=== PATIENT | female | born 1970 | race Two or more races ===

== ENCOUNTER 2025-04-22 21:54 | Inpatient (IN) | payer OTHER ==
[~2025-04-22] VITALS: Ht 162.6 cm; Wt 79.0 kg
--- NOTE | 2025-04-22 23:19 | ED.PDOC ---
HPI Comments HPI: Past Medical History: Hypertension, dyslipidemia, hyperthyroid Surgical History: , left ankle surgery Family History: Denies Personal and Social History: Denies Tre Adams: palpitations, weakness, TSH. propranolol HPI: Poor Historian. 54-year-old female presents to the ED for evaluation of some overall generalized weakness and nonspecific tremors. Patient states she has been feeling odd for the last three weeks and went to her PCP who diagnosed with a thyroid disease after TSH and T4 was ordered. ((TSH: <0.05, T4: >24.9, T3: 579) The PCP did not start the patient on any thyroid medication but it state gave her propranolol. Patient took the 1st dose today 10 mg p.o. once. She said that her symptoms got worse after she took that pill. She checked her blood pressure at home and heart rate. Heart rate was asthma FX as 103 blood pressure was systolically in the 140s. Denies any actual chest pain or abdominal pain or shortness of breath. Patient is scheduled for outpatient ultrasound of her thyroid. Past Medical History: Past Surgical History: REVIEW OF SYSTEMS: CONSTITUTIONAL: Denies acute: fever, diaphoresis, chills, HEAD: Denies acute: headache, photophobia Eyes: Denies acute: Double vision, vision loss, eye pain, eye discharge. EARS: Denies acute: tinnitus, hearing loss, ear discharge, ear pain, THROAT: Denies acute: sore throat, swelling, difficulty swallowing , pain with swallowing, change in voice. NECK: Denies acute: neck pain, neck swelling, stiff neck. HEART: Denies acute : chest pain, , LUNGS: Denies acute: SOB, wheezing, cough, hemoptysis ABDOMEN: Denies acute: abdominal pain, Nausea, Vomiting, diarrhea, melena , hematemesis, hematochezia SKIN: Denies acute: rash, redness, lesions, itchiness. EXTREMITIES: Denies acute: calf pain, numbness, tingling, weakness, denies pain in extremity. Denies acute: Low back pain. Neuro: Denies acute: focal neurological deficit, motor or sensory focal neurological deficit, , seizure like activity, confusion, , change in mental status, loss of bowel or bladder function, cauda equina like symptoms. : Denies acute: dysuria, hematuria, flank pain, increase in urinary frequency. PSYCH: Denies acute: hallucination, suicidal ideation, homicidal ideation. FEMALE: Denies acute: abnormal vaginal bleeding, foul odor, unusual discharge. PHYSICAL EXAM: General: ----while----acute distress, awake and alert. Head: normocephalic, atraumatic. No raccoon's eyes, no gatica sign. Neck: supple, trachea is midline, no swelling. Throat: Normal phonation. Eyes:, no erythema, no purulent discharge, no proptosis, no icterus. Heart: regular rate, regular rhythm, no significant murmur appreciated. Lungs: no apparent respiratory distress, Able to speak in full sentences. No wheezing, no rhonchi, no crackles. No stridors Clear to auscultation bilaterally. Abdomen: non tender to palpation, non distended, soft, no guarding, no rebound, + bowel sounds. Neuro: Awake, Alert, oriented to name, self, situation, follows commands GCS=15. Speech is normal. Skin: no petechia, no purpura, no cyanosis, non-pale, not jaundice. Lower extremities: --no - Pitting edema no deformity, no focal swelling, no calf TTP. Makes eye contact. moves all four extremities. Face: no apparent facial droop. Ambulating in the ED independently. ED COURSE: DISCLAIMER: This medical document was created using an electronic medical record system with voice recognition software and computerized dictation system. Although this document has been carefully reviewed, there might still be some phonetic and typographical errors. Occasional wrong-word or "sound-alike" substitutions may have occurred due to the inherent limitations of voice recognition software. These areas are purely typographical due to imperfections of the software programs and do not reflect any compromise in the patient's medical care. Please read the chart carefully and recognize, using context, where these substitutions have occurred. Chief Complaint: Chest Pain Time Seen by MD: 23:19 Reviewed Notes: Nurses Notes, Allergies Allergies: Coded Allergies: NO KNOWN ALLERGIES (Unverified , 04/23/25) Information Source: Patient Mode of Arrival: Ambulatory Past Medical History PAST MEDICAL HISTORY: High Lipids, HTN, Thyroid Was a procedure done? Was a procedure done?: No CP Differential Dx Differential Diagnosis: A-fib, A-Flutter, Angina, Anxiety / Panic Attack, Atrial Dysrhythmia, Digoxin Toxicity, Electrolyte Disorder, Heart Failure, Hyperthyroidism, Hyperventilation, Hypoxia, MAT, MD, PAC's, Pacemaker Malfunction, PSVT, Pulmonary Embolus, PVC's, Renal Failure, Sinus Tachycardia, Torsades De Pointes, Ventricular Dysrhythmia, V-Fib, V-Tach, WPW X-Ray, Labs, Meds, VS Vital Signs Date Time Temp Pulse Resp B/P (MAP) Pulse Ox O2 Delivery O2 Flow Rate FiO2 04/23/25 01:04 95 04/22/25 23:26 93 04/22/25 22:05 97.4 96 19 142/82 97 97.4 04/22/25 22:00 103 Lab Test 04/23/25 00:13 04/22/25 23:10 Range/Units Magnesium Level 2.1 2.1 1.6-2.6 mg/dL Troponin I High Sensitivity 3 L 3 L </=34 ng/L White Blood Count 5.8 4.4-10.8 10^3/uL Red Blood Count 4.64 4.0-5.20 10^6/uL Hemoglobin 13.5 12.2-16.2 g/dL Hematocrit 39.3 36.0-46.0 % Mean Corpuscular Volume 84.8 80.0-100.0 fL Mean Corpuscular Hemoglobin 29.0 28.0-32.0 pg Mean Corpuscular Hemoglobin Concent 34.2 32.0-36.0 g/dL Red Cell Distribution Width 11.5 L 11.8-14.3 % Platelet Count 243 140-450 10^3/uL Mean Platelet Volume 8.0 6.9-10.8 fL Neutrophils (%) (Auto) 49.5 37.0-80.0 % Lymphocytes (%) (Auto) 35.0 10.0-50.0 % Monocytes (%) (Auto) 11.1 0.0-12.0 % Eosinophils (%) (Auto) 3.8 0.0-7.0 % Basophils (%) (Auto) 0.6 0.0-2.0 % Neutrophils # (Auto) 2.9 1.6-8.6 10 ^3/uL Lymphocytes # (Auto) 2.0 0.4-5.4 10 ^3/uL Monocytes # (Auto) 0.6 0-1.3 10 ^3/uL Eosinophils # (Auto) 0.2 0-0.8 10 ^3/uL Basophils # (Auto) 0 0-0.2 10 ^3/uL Nucleated Red Blood Cells 0.1 % D-Dimer, Quantitative 0.50 H 0.0-0.49 mg/L FEU Sodium Level 141 136-145 mmol/L Potassium Level 4.3 3.5-5.1 mmol/L Chloride Level 108 H 98-107 mmol/L Carbon Dioxide Level 24 20-31 mmol/L Anion Gap 9 5-15 Blood Urea Nitrogen 10 9-23 mg/dL Creatinine 0.42 L 0.550-1.02 mg/dL Glomerular Filtration Rate Calc 116 >90 mL/min BUN/Creatinine Ratio 23.8 H 10.0-20.0 Serum Glucose 109 H 74-106 mg/dL Lactic Acid Level 0.5 0.4-2.0 mmol/L Calcium Level 9.7 8.7-10.4 mg/dL Total Bilirubin 0.6 0.2-1.0 mg/dL Aspartate Amino Transferase (AST) 43 H 13-40 U/L Alanine Aminotransferase (ALT) 77 H 7-40 U/L Alkaline Phosphatase 71 46-116 U/L Total Protein 6.9 5.7-8.2 g/dL Albumin 3.9 3.2-4.8 g/dL Thyroid Stimulating Hormone (TSH) < 0.01 L 0.55-4.78 uIU/mL Free Thyroxine (T4) Calculated 6.82 H 0.89-1.76 ng/dL [place] [id number] Ph: [phone] DIAGNOSTIC IMAGING Diagnostic Imaging Report : [id number] Signed PATIENT: TRE ADAMS ACCT: [id number] UNIT: [id number] : 1970 LOC: ER ROOM / BED: / AGE / SEX: 54 / F ADM STATUS: REG ER SERVICE [id number] ORDERING PHYSICIAN: CATARINO HALL DO PROCEDURE(s): CXRP - CHEST PORTABLE REASON: tachy ORDER NUMBER(s): [id number], ACCESSION NUMBER(s): [id number] CHEST RADIOGRAPH Indication: tachy Technique: Single frontal view of the chest was obtained COMPARISON: None FINDINGS: Lungs and pleural spaces are clear. Cardiac silhouette and delvin are within normal limits. Bones and soft tissues demonstrate no significant abnormality. IMPRESSION: No acute disease. ATED BY: NEGIN MAX MD DICTATED DATE/TIME: 04/23/2524 SIGNED BY: NEGIN MAX MD SIGNED DATE/TIME: 04/23/2524 CC: Time of 1ST Reevaluation: 23:16 Reevaluation 1ST: Unchanged Patient Education/Counseling: Diagnosis, Treatment Family Education/Counseling: No Family Present Comments MDM: patient presented with the above HPI.---generalized weakness/palpitation---workup was initiated. patient was found with the above mentioned diagnosis. the following medications were ordered: please refer to order lists of meds and tests obtained by myself Dr. Hall. Patient ED course and VS have been stabilized. Patient has been reassessed in the ED and remained in a stable condition. Pertinent incidental findings were discussed with the patient and/or family. Patient/family voices understanding and is agreeable with plan. Patient has been observed in the ED adequate length of time to insure improvement/stability. Escalation of care considered: Consideration of escalation to observation or admission Patient was ADMITTED to the medicine team for further evaluation and treatment of their presentation. All the reports of any imaging studies that were ordered by myself were reviewed by myself. SEPSIS Sepsis Screen Date sepsis recognized/suspect: Apr 22, 2025 Time Sepsis recognized/suspect: 2208 Recent Procedure: No On Antibiotic Therapy: No Respiratory Rate >20: No Heart Rate >90: Yes Temp<36 C (96.8 F) or >38.3 C: No SBP <90 or MAP <65 mmHG: No New Acute Mental Status Change: No Is the patient on CPAP, BIPAP,: No Physician Orders Mechanical Expert (04/22/25 ) Chest Portable (04/22/25 22:57) Vital Signs Date Time Temp Pulse Resp B/P (MAP) Pulse Ox O2 Delivery O2 Flow Rate FiO2 04/23/25 01:04 95 04/22/25 23:26 93 04/22/25 22:05 97.4 96 19 142/82 97 97.4 04/22/25 22:00 103 Laboratory Tests Test 04/22/25 23:10 Lactic Acid Level 0.5 mmol/L (0.4-2.0) White Blood Count 5.8 10^3/uL (4.4-10.8) Departure 1 Departure Time of Disposition: 23:45 Impression: Primary Impression: Thyroid disease Disposition: ADMITTED INPATIENT Admit to: Tele Condition: Guarded Discharged With: Self Critical Care Note Critical Care Time?: No Heart Score Heart Score: Heart Score Response (Comments) Value History Slightly Suspicious 0 EKG Repolarization Disturb 1 Age 45-64 1 Risk Factors 1 or 2 risk factors 1 Troponin Normal limit 0 Total 3 I personally scribed for CATARINO HALL DO ([email or web address]) on 04/22/25 at 23:19. Electronically submitted by Cuong Kim ([email or web address]). I personally scribed for CATARINO HALL DO ([email or web address]) on 04/23/25 at 01:35. Electronically submitted by Cuong Kim ([email or web address]). I personally scribed for CATARINO HALL DO ([email or web address]) on 04/23/25 at 03:50. Electronically submitted by Cuong Kim ([email or web address]). CATARINO HALL DO Apr 22, 2025 23:19
[2025-04-22 23:28] LABS: Hematocrit 39.3 % (36.0-46.0); Hemoglobin 13.5 g/dL (12.2-16.2); Mean Corpuscular Hemoglobin 29.0 pg (28.0-32.0); Mean Corpuscular Volume 84.8 fL (80.0-100.0); Nucleated Red Blood Cells % 0.1 %
--- NOTE | 2025-04-22 23:28 | ECG ---
[facility] Test Date: 2025-04-22 Test Time: 23:26:56 Pat Name: TRE ADAMS Department: [facility] ED Patient ID: [facility]-[id number] Room: 0288T Gender: F Manager Mass: DENIS : 1970 Requested By: CATARINO HALL Order Number: [id number] Reading MD: Mario Cole Measurements Intervals [place] Rate: 93 P: 76 [place]: 153 QRS: 82 QRSD: 82 T: 79 QT: 358 QTc: 446 Interpretive Statements Sinus rhythm ST elev, probable normal early repol pattern Electronically Signed On 04-25-2025 10:56:58 PST by Mario Cole Please click the below link to view image of tracing.
[2025-04-22 23:40] LABS: Albumin 3.9 g/dL (3.2-4.8); Alkaline Phosphatase 71 U/L (46-116); Anion Gap 9 (5-15); BUN/Creatinine Ratio 23.8 (10.0-20.0); Blood Urea Nitrogen 10 mg/dL (9-23); Calcium 9.7 mg/dL (8.7-10.4); Carbon Dioxide 24 mmol/L (20-31); Magnesium 2.1 mg/dL (1.6-2.6); Potassium 4.3 mmol/L (3.5-5.1); Sodium 141 mmol/L (136-145); Total Protein 6.9 g/dL (5.7-8.2)
[2025-04-22 23:41] LABS: Bilirubin, Total 0.6 mg/dL (0.2-1.0)
[2025-04-22 23:42] LABS: Alanine Aminotransferase 77 U/L (7-40); Chloride 108 mmol/L (98-107); Glucose 109 mg/dL (74-106)
[2025-04-23] VITALS (7 sets, daily range): BP systolic 115–131; BP diastolic 56–67; PULSE 83–108; RESP 17–19; TEMP 97.6–98.2; O2SAT 97–98
--- NOTE | 2025-04-23 00:28 | DVH ---
CHEST RADIOGRAPH Indication: tachy Technique: Single frontal view of the chest was obtained COMPARISON: None FINDINGS: Lungs and pleural spaces are clear. Cardiac silhouette and delvin are within normal limits. Bones and soft tissues demonstrate no significant abnormality. IMPRESSION: No acute disease.
[2025-04-23] MEDS ORDERED: ACETAMINOPHEN 325 MG TAB PO PRN (02:15)
[2025-04-23] MEDS ORDERED: ONDANSETRON HCL 4 MG/2 ML VIAL IV PRN (02:15)
[2025-04-23] MEDS ORDERED: HYDROcodone-ACET 5/325MG TAB PO PRN (02:15)
--- NOTE | 2025-04-23 02:50 | DVHHPRES ---
History of Present Illness Resident Creating Document: OR[place] BLOCK RESIDENT History of Present Illness 54-year-old woman with a past medical history of hypertension and hyperlipidemia (not on any medication), has come to the emergency room with chief complaints of taking propranolol 10 mg and feeling unwell. Patient reports that in the past 3 weeks, she has been having tremors of all extremities, palpitations, tiredness, weakness, constipation, hypersomnolence, hoarseness of voice, weight loss of 10 lbs for which she visited her PCP 2 days ago, and was told she has hyperactive thyroid disease. She was prescribed propranolol 10 mg which she took today afternoon (first time, first dose) and in 3 hours time had worsening of symptoms- palpitations, dizziness, weakness, nausea and slight shortness of breath, for which he decided to come to the ER. Blood levels of TSH 2 days ago at PCP was TSH <0.005, T4- >24.9 and T3-579. Patient also complains of having phlegm in her throat for the past 3 weeks and was told by PCP she has allergies and was given loratadine and Flonase. She denies any vomiting, fever, chills, cough, chest pain. Vitals on admission- temp 97.4, HR 103, RR 19, BP 142/82 mmHg, SpO2 97 at room air. We are admitting the patient for further workup and management. PMH: Stated above PSH: 2 C sections, hysterectomy, left ankle surgery Family history: Reviewed, noncontributory to the management of this case Social history: Patient denies any alcohol abuse, cigarette smoking but smokes marijuana occasionally Allergies: None Code status: Full code Review of Systems Constitutional: Yes: Weakness, Malaise, Other (Weight loss); No: Fever, Chills, Sweats Eyes: No: Pain, Vision change, Conjunctivae inflammation, Eyelid inflammation, Other, Redness ENT: Other (Hoarseness of voice); No: Ear pain, Ear discharge, Nose pain, Nose discharge, Nose congestion, Mouth pain, Mouth swelling, Throat pain, Throat swelling Respiratory: Shortness of breath; No: Cough, Dry, SOB with excertion, Wheezing, Hemoptysis, Pleuritic Pain, Sputum, Wheezing, Other Cardiovascular: Palpitations, Lt Headedness; No: Chest Pain, Orthopnea, Paroxysmal Noc. Dyspnea, Edema, Other Gastrointestinal: No: Nausea, Vomiting, Abdominal Pain, Diarrhea, Constipation, Melena, Hematochezia, Other Genitourinary: No Dysuria, No Frequency, No Incontinence, No Hematuria, No Retention, No Other Musculoskeletal: No: other, neck pain, shoulder pain, arm pain, back pain, hand pain, leg pain, foot pain Skin: No: Rash, Lesions, Jaundice, Bruising, Other Neurological: Other (Resting Tremors); No: Weakness, Numbness, Incoordination, Change in speech, Confusion, Seizures Allergies: Coded Allergies: NO KNOWN ALLERGIES (Unverified , 04/23/25) Medications Current Medications Medications Dose Ordered Sig/Shauna Route Start Time Stop Time Status Last Admin Dose Admin Acetaminophen/ Hydrocodone Bitart 1 tab Q4HP PRN PO 04/23/25 02:15 Ondansetron HCl 4 mg Q4HP PRN IV 04/23/25 02:15 Acetaminophen 650 mg Q6HP PRN PO 04/23/25 02:15 Enoxaparin Sodium 40 mg DAILY SC 04/23/25 02:15 Atenolol 25 mg DAILY PO 04/24/25 10:00 Loratadine 10 mg DAILY PO 04/23/25 10:00 Methimazole 10 mg BID PO 04/23/25 22:00 Exam Vital Signs Vital Signs Date Time Temp Pulse Resp B/P (MAP) Pulse Ox O2 Delivery O2 Flow Rate FiO2 04/23/25 01:04 95 04/22/25 22:05 97.4 19 142/82 97 97.4 Exam General Appearance: Alert, Oriented X3, Cooperative, Not in acute distress HEENT: Atraumatic, Mucous membranes moist/pink, neck appears enlarged Respiratory: Clear to auscultation, Normal air movement, No added sounds Cardiovascular: Regular rate, Normal S1, Normal S2, No murmurs Abdominal: Active bowel sounds, Soft, no distention, no tenderness Extremities: No edema, Normal pulses, No tenderness/swelling , presence of mild resting tremors in all 4 extremities, more in the right extremity Skin: No Significant rash, except past surgical scars Neuro: Normal speech, sensorimotor deficits none Psych/Mental Status: Mental status NL, Mood NL Labs/Xrays Labs Test 04/23/25 00:13 04/22/25 23:10 Range/Units Troponin I High Sensitivity 3 L </=34 ng/L White Blood Count 5.8 4.4-10.8 10^3/uL Red Blood Count 4.64 4.0-5.20 10^6/uL Hemoglobin 13.5 12.2-16.2 g/dL Hematocrit 39.3 36.0-46.0 % Mean Corpuscular Volume 84.8 80.0-100.0 fL Mean Corpuscular Hemoglobin 29.0 28.0-32.0 pg Mean Corpuscular Hemoglobin Concent 34.2 32.0-36.0 g/dL Red Cell Distribution Width 11.5 L 11.8-14.3 % Platelet Count 243 140-450 10^3/uL Mean Platelet Volume 8.0 6.9-10.8 fL Neutrophils (%) (Auto) 49.5 37.0-80.0 % Lymphocytes (%) (Auto) 35.0 10.0-50.0 % Monocytes (%) (Auto) 11.1 0.0-12.0 % Eosinophils (%) (Auto) 3.8 0.0-7.0 % Basophils (%) (Auto) 0.6 0.0-2.0 % Neutrophils # (Auto) 2.9 1.6-8.6 10 ^3/uL Lymphocytes # (Auto) 2.0 0.4-5.4 10 ^3/uL Monocytes # (Auto) 0.6 0-1.3 10 ^3/uL Eosinophils # (Auto) 0.2 0-0.8 10 ^3/uL Basophils # (Auto) 0 0-0.2 10 ^3/uL Nucleated Red Blood Cells 0.1 % D-Dimer, Quantitative 0.50 H 0.0-0.49 mg/L FEU Sodium Level 141 136-145 mmol/L Potassium Level 4.3 3.5-5.1 mmol/L Chloride Level 108 H 98-107 mmol/L Carbon Dioxide Level 24 20-31 mmol/L Anion Gap 9 5-15 Blood Urea Nitrogen 10 9-23 mg/dL Creatinine 0.42 L 0.550-1.02 mg/dL Glomerular Filtration Rate Calc 116 >90 mL/min BUN/Creatinine Ratio 23.8 H 10.0-20.0 Serum Glucose 109 H 74-106 mg/dL Lactic Acid Level 0.5 0.4-2.0 mmol/L Calcium Level 9.7 8.7-10.4 mg/dL Total Bilirubin 0.6 0.2-1.0 mg/dL Aspartate Amino Transferase (AST) 43 H 13-40 U/L Alanine Aminotransferase (ALT) 77 H 7-40 U/L Alkaline Phosphatase 71 46-116 U/L Total Protein 6.9 5.7-8.2 g/dL Albumin 3.9 3.2-4.8 g/dL Thyroid Stimulating Hormone (TSH) < 0.01 L 0.55-4.78 uIU/mL Free Thyroxine (T4) Calculated 6.82 H 0.89-1.76 ng/dL SEPSIS Sepsis Screen Date sepsis recognized/suspect: Apr 22, 2025 Time Sepsis recognized/suspect: 2208 Recent Procedure: No On Antibiotic Therapy: No Respiratory Rate >20: No Heart Rate >90: Yes Temp<36 C (96.8 F) or >38.3 C: No SBP <90 or MAP <65 mmHG: No New Acute Mental Status Change: No Is the patient on CPAP, BIPAP,: No Physician Orders Park Worker (04/22/25 ) Chest Portable (04/22/25 22:57) Admit (04/23/25 02:04) Code Status (04/23/25 02:04) Hydrocodone-Acet 5/325mg Tab ([place] 5/32 (04/23/25 02:15) Ondansetron Hcl (Zofran) (04/23/25 02:15) Complete Blood Count (04/23/25 04:00) Comprehensive Metabolic Panel (04/23/25 04:00) Cardiac Diet-2gna,Lofat,Lochol (04/23/25 Breakfast) Condition: Unstable (04/23/25 02:04) Acetaminophen Tablet (Tylenol Tablet) (04/23/25 02:15) Enoxaparin Sodium (Lovenox) (04/23/25 02:15) Stat Ekg For Chest Pain (04/23/25 02:04) Notify Of Changes From Base (04/23/25 02:04) Freight Service Inspector For 24 Hours (04/23/25 02:04) T3 Total (04/23/25 02:04) Thyroid (04/23/25 02:04) Urinalysis (04/23/25 02:04) Drug Screen (04/23/25 02:04) Covid19 Antigen Kay (04/23/25 ) Rapid Influenza A&B (04/23/25 02:04) Magnesium (04/23/25 02:04) Bilat Lower Dvt (04/23/25 02:04) Atenolol Tablet (Tenormin Tablet) (04/24/25 10:00) Loratadine Tablet (Claritin Tablet) (04/23/25 10:00) Fluticasone Nasal [place] (Flonase [place]) (04/23/25 10:00) Methimazole Tab (Tapazole) (04/23/25 22:00) Vital Signs Date Time Temp Pulse Resp B/P (MAP) Pulse Ox O2 Delivery O2 Flow Rate FiO2 04/23/25 01:04 95 04/22/25 23:26 93 04/22/25 22:05 97.4 96 19 142/82 97 97.4 04/22/25 22:00 103 Laboratory Tests Test 04/22/25 23:10 Lactic Acid Level 0.5 mmol/L (0.4-2.0) White Blood Count 5.8 10^3/uL (4.4-10.8) Assessment/Plan Assessment/Plan #Thyrotoxicosis, unspecified #Hyperthyroidism -EKG -Tele monitor -TSH <0.01, free T4 6.82, T3 pending -thyroid ultrasound -UA -UDS -D-dimer positive -Bilateral extremity Doppler -Atenolol 25 mg p.o. daily -Methimazole 15 mg p.o. once and 10 mg p.o. b.i.d. daily -hold methimazole if transaminitis X5 upper limit of normal #Transaminitis -AST 43, ALT 77 -Monitor #Seasonal allergy -loratadine -Flonase -COVID/ flu #History of hypertension #History of hyperlipidemia -patient has never been prescribed medication for it -patient counseled regarding healthy diet, exercise DVT prophylaxis: Lovenox 40 mg SC daily Diet: Cardiac diet Goals of care discussed with the patient for more than 27 minutes: Full code status Case discussed with Dr. Gillespie, patient Plan discussed with: Patient, Daughter My Orders Orders - [place] BLOCK RESIDENT Procedure Category Date Status Time Admit ADMIT 04/23/25 Transmitted 02:04 Code Status CODE 11/8/25 Transmitted 02:04 Hydrocodone-Acet PHA 04/23/25 In Process 5/325mg Tab ([place] 02:15 Ondansetron Hcl PHA 04/23/25 In Process (Zofran) 02:15 Complete Blood Count LAB 04/23/25 Logged 04:00 Comprehensive LAB 04/23/25 Logged Metabolic Panel 04:00 Cardiac DIET 04/23/25 Transmitted Diet-2gna,Lofat,Lochol Breakfast Condition: Unstable MAGI 04/23/25 In Process 02:04 Acetaminophen Tablet PHA 04/23/25 In Process (Tylenol Tablet) 02:15 Enoxaparin Sodium PHA 04/23/25 In Process (Lovenox) 02:15 Stat Ekg For Chest MAGI 04/23/25 In Process Pain 02:04 Notify Of Changes MAGI 04/23/25 In Process From Base 02:04 Freight Service Inspector For [facility] 04/23/25 In Process 24 Hours 02:04 T3 Total LAB 04/23/25 Logged 02:04 Thyroid US 04/23/25 Logged 02:04 Urinalysis LAB 04/23/25 Logged 02:04 Drug Screen LAB 04/23/25 Logged 02:04 Covid19 Antigen Kay LAB 04/23/25 Logged Rapid Influenza A&B LAB 04/23/25 Logged 02:04 Magnesium LAB 04/23/25 In Process 02:04 Bilat Lower Dvt US 04/23/25 Logged 02:04 Atenolol Tablet PHA 04/24/25 In Process (Tenormin Tablet) 10:00 Loratadine Tablet PHA 04/23/25 In Process (Claritin Tablet) 10:00 Fluticasone Nasal PHA 04/23/25 In Process [place] (Flonase [place]) 10:00 Methimazole Tab PHA 04/23/25 In Process (Tapazole) 22:00 Date of Service: Apr 23, 2025 Billing Provider: JESSIKA GILLESPIE MD Common Visit Codes: 58399-OROZKXB INP/OBS CARE (HIGH) Secondary Visit Codes: 63269-[id number] CARE PLAN 30 MINUTES [place] BLOCK RESIDENT Apr 23, 2025 02:50
[2025-04-23 04:00] LABS: Hematocrit 39.0 % (36.0-46.0); Hemoglobin 13.6 g/dL (12.2-16.2); Mean Corpuscular Hemoglobin 29.3 pg (28.0-32.0); Mean Corpuscular Volume 84.3 fL (80.0-100.0); Nucleated Red Blood Cells % 0.2 %
[2025-04-23 04:14] LABS: Albumin 3.9 g/dL (3.2-4.8); Alkaline Phosphatase 71 U/L (46-116); Anion Gap 12 (5-15); BUN/Creatinine Ratio 21.4 (10.0-20.0); Bilirubin, Total 0.8 mg/dL (0.2-1.0); Calcium 9.4 mg/dL (8.7-10.4); Carbon Dioxide 23 mmol/L (20-31); Chloride 106 mmol/L (98-107); Glucose 100 mg/dL (74-106); Potassium 3.9 mmol/L (3.5-5.1); Sodium 141 mmol/L (136-145); Total Protein 6.9 g/dL (5.7-8.2)
[2025-04-23 04:16] LABS: Alanine Aminotransferase 80 U/L (7-40); Blood Urea Nitrogen 9 mg/dL (9-23)
[2025-04-23] MEDS: ATENOLOL 25 MG TAB PO ONE (04:39)
[2025-04-23] MEDS: ENOXAPARIN SOD 40 MG/0.4 ML SYRINGE SC SCH (04:40)
[2025-04-23] MEDS: FLUTICASONE PROP NASAL SPR 0.05 % (50MCG) 16GM EACHNOSTRI ONE (06:23)
[2025-04-23] MEDS: LORATADINE 10 MG TAB PO SCH (06:23)
[2025-04-23] MEDS: methIMAzole 5 MG TAB PO ONE (07:37)
[2025-04-23 09:04] LABS: Urine Protein, UAD Negative (Negative)
[2025-04-23 09:18] LABS: Amphetamine Screen, Urine Neg (NEGATIVE); Barbiturate Scree,Urine Neg (NEGATIVE); Benzodiazephine Screen, Urine Neg (NEGATIVE); Cannabinoid Screen, Urine Neg (NEGATIVE); Cocaine Screen, Urine Neg (NEGATIVE); Opiate Scree,Urine Neg (NEGATIVE); Phencyclidine Screen, Urine Neg (NEGATIVE)
--- NOTE | 2025-04-23 09:33 | DVH ---
Bilateral lower extremity venous Doppler INDICATION: high d dimer TECHNIQUE: Duplex venous sonography was performed with real-time and flow sensitive images submitted for evaluation. FINDINGS: Normal phasic venous flow. Veins are fully compressible. No filling defects. IMPRESSION: 1. No evidence of deep vein thrombosis.
--- NOTE | 2025-04-23 09:43 | DVH ---
CLINICAL INFORMATION: 54 years old, Female; thyrotoxicosis. TECHNIQUE: Grayscale sonographic imaging of the thyroid was performed, assisted by color Doppler technique. COMPARISON: None FINDINGS: The right thyroid lobe measures 6.2 x 2.2 x 2.1 cm. There is heterogeneous echogenicity and increased vascular flow. The following nodules were seen in the right thyroid lobe: 0.8 cm nodule in the Superior pole. Composition: Solid or almost completely solid (2 points) Echogenicity: Hypoechoic (2 points) Shape: Wider than tall (0 points) Margin: Smooth (0 points) Echogenic foci: None or large comet-tail artifacts (0 points) Total points: 4 TI-RADS category: TR4 The left thyroid lobe measures 5.6 x 1.9 x 2.2 cm. There is heterogeneous echogenicity and increased vascular flow. The following nodules were seen in the left thyroid lobe: 1.0 cm nodule in the Inferior pole. Composition: Solid or almost completely solid (2 points) Echogenicity: Hypoechoic (2 points) Shape: Wider than tall (0 points) Margin: Lobulated or irregular (2 points) Echogenic foci: None or large comet-tail artifacts (0 points) Total points: 6 TI-RADS category: TR4 The thyroid isthmus measures 0.4 cm in thickness. There is heterogeneous echogenicity and increased vascular flow. No nodules are seen at the thyroid isthmus. IMPRESSION: 1. Thyroid nodules as described above. Both nodules are consistent with TR 4 nodules. Recommend follow-up thyroid ultrasound surveillance at 1, 2, 3, and 5 years. 2. Heterogeneous echogenicity of the thyroid with increased vascular flow, may be seen with graves disease, vanessa's thyroiditis, or subacute thyroiditis. TI-RADS Categories TR1 (0 points): Benign. No FNA TR2 (2 points): Not suspicious. No FNA TR3 (3 points): Mildly suspicious. FNA if >/= 2.5 cm. Follow if >/= 1.5 cm TR4 (4-6 points): Moderately suspicious. FNA if >/= 1.5 cm. Follow if >/= 1 cm TR5 (7 points or more): Highly suspicious. FNA if >/= 1 cm. Follow if >/= 0.5 cm
[2025-04-23 11:36] LABS: COVID19 ANTIGEN SOFIA FIA NEGATIVE (NEGATIVE)
--- NOTE | 2025-04-23 17:13 | DVHPN2 ---
Progress Note Date Seen: Apr 23, 2025 Medical Necessity Reason Pt with a Central, PICC or Fol: No Subjective Patient reports: No new complaints Review of Systems: CVS:Normal, RESPIRATORY:Normal, GI:Normal, NEURO:Normal Objective vital signs Vital Sign Date Time Temp Pulse Resp B/P (MAP) Pulse Ox O2 Delivery O2 Flow Rate FiO2 04/23/25 16:50 98.1 86 18 126/67 (86) 97 98.1 04/23/25 06:26 Room Air* 0 21 medications Current Medications Medications Dose Ordered Sig/Shauna Route Start Time Stop Time Status Last Admin Dose Admin Acetaminophen/ Hydrocodone Bitart 1 tab Q4HP PRN PO 04/23/25 02:15 Ondansetron HCl 4 mg Q4HP PRN IV 04/23/25 02:15 Acetaminophen 650 mg Q6HP PRN PO 04/23/25 02:15 Enoxaparin Sodium 40 mg DAILY SC 04/23/25 02:15 04/23/25 04:40 40 MG Atenolol 25 mg DAILY PO 04/24/25 10:00 Cancel Loratadine 10 mg DAILY PO 04/23/25 10:00 04/23/25 06:23 10 MG Methimazole 10 mg BID PO 04/23/25 22:00 Propranolol HCl 20 mg BID PO 04/23/25 22:00 UNV Examination: GENERAL:Normal, LUNGS:Normal, CVS:Normal, ABDOMEN:Normal, SKIN:Normal laboratory and microbiology Laboratory Tests 04/23/25 03:22 Test 04/23/25 03:22 Range/Units Serum Glucose 100 74-106 mg/dL Labs and/or images reviewed: Labs reviewed by me, Image(s) reviewed by me Problem List/Assessment/Plan Problem List/Assessment/Plan Marquita Bishop presents with generalized weakness and bilateral hand tremors, admitted for thyrotoxicosis with hyperthyroidism diagnosed by PCP. Thyrotoxicosis Assessment: Patient admitted for thyrotoxicosis with hyperthyroidism previously diagnosed by PCP. Laboratory findings demonstrate suppressed TSH below 0.01 and elevated free T4 of 6.82 yesterday, with today's free T4 still pending. Patient reports improvement in tremors today. Thyroid ultrasound revealed thyroid nodules requiring follow-up. Endocrinology consultation has been requested and is pending. Plan: - Continue methimazole 10 mg BID (previously received loading dose of 15 mg once) - Await endocrinology consultation - Follow-up thyroid ultrasound findings for nodules - Monitor free T4 levels - Change from atenolol to propranolol for symptom management Transaminitis Assessment: Patient has elevated liver enzymes requiring monitoring. Plan: - Continue to monitor transaminases Hypertension Assessment: Patient has hypertension currently managed with antihypertensive therapy. Plan: - Discontinue atenolol and change to propranolol Hyperlipidemia Assessment: Patient has hyperlipidemia requiring ongoing monitoring. Plan: - Monitor lipid levels DVT prophylaxis Assessment: DVT Doppler negative for lower extremity deep vein thrombosis. D- dimer level 0.50. Patient requires DVT prophylaxis during hospitalization. Plan: - Continue DVT prophylaxis Plan discussed with: Patient My Orders My Orders Orders - MELANI MOORE Procedure Category Date Status Time * Endocrinology CONS 04/23/25 Transmitted Consult 09:57 Free T4 (Free LAB 04/23/25 In Process Thyroxine) 09:59 Communication Order ORDERS 04/23/25 Transmitted 16:58 Propranolol Hcl PHA 04/23/25 Logged Tablet (Inderal 22:00 Thyroid Stimulating LAB 04/23/25 Logged Immunoglob 17:07 Thyrotropin Receptor LAB 04/23/25 Logged Antibody 17:07 Thyroid Peroxidase LAB 04/23/25 Logged (Tpo) Ab 17:07 Date of Service: Apr 23, 2025 Billing Provider: RAYMOND DAIS MD Common Visit Codes: [id number] INP/OBS CARE (MOD) MELANI MOORE Apr 23, 2025 17:13
[2025-04-23] MEDS: PROPRANOLOL HCL 20 MG TAB PO SCH (21:34)
[2025-04-23] MEDS: methIMAzole 5 MG TAB PO SCH (21:34)
[2025-04-24 01:00] VITALS: BP 109/56; PULSE 86; RESP 18; TEMP 97.6; O2SAT 96
[2025-04-24 05:00] VITALS: BP 138/53; PULSE 87; RESP 19; TEMP 98.2; O2SAT 95
[2025-04-24 08:00] VITALS: PULSE 98
[2025-04-24 09:00] VITALS: BP 114/64; PULSE 100; RESP 20; TEMP 98.4; O2SAT 97
[2025-04-24] MEDS ORDERED: ATENOLOL 25 MG TAB PO SCH (10:00)
[2025-04-24] MEDS ORDERED: METH5TAB98 PO (10:03)
--- NOTE | 2025-04-24 16:26 | DVHDS2 ---
Discharge Summary Date of Admission Apr 23, 2025 at 02:04 Date of Discharge: Apr 24, 2025 Admitting Diagnosis thyrotoxicosis Labs/Diagnostic Data: Laboratory Results Test 04/23/25 23:10 04/23/25 18:16 04/23/25 09:50 04/23/25 08:48 Total Triiodothyronine (TT3) 5.15 ng/mL (0.60-1.81) Influenza Type A Antigen Negative (Negative) Influenza Type B Antigen Negative (Negative) SARS-CoV-2 Antigen (Rapid) Negative (NEGATIVE) Urine Color Colorless (Yellow) Urine Clarity Clear (Clear) Urine pH 5.5 (5.0-9.0) Urine Specific [place] 1.005 (1.001-1.035) Urine Protein Negative (Negative) Urine Ketones Trace (Negative) Urine Blood Negative /uL (Negative) Urine Nitrite Negative (Negative) Urine Bilirubin Negative (Negative) Urine Urobilinogen Normal mg/dL (Negative) Urine Leukocyte Esterase Negative /uL (Negative) Urine RBC <1 /hpf (0 - 4) Urine Microscopic WBC < 1 /HPF (0-5) Urine Squamous Epithelial Cells Few /hpf (<5) Urine Bacteria None seen /hpf (None Seen) Urine Glucose Normal mg/dL (Normal) Urine Opiates Screen Neg (NEGATIVE) Urine Fentanyl Screen Neg (NEGATIVE) Urine Barbiturates Screen Neg (NEGATIVE) Urine Phencyclidine Screen Neg (NEGATIVE) Urine Amphetamines Screen Neg (NEGATIVE) Urine Benzodiazepines Screen Neg (NEGATIVE) Urine Cocaine Screen Neg (NEGATIVE) Urine Cannabinoids Screen Neg (NEGATIVE) Test 04/23/25 03:22 04/23/25 00:13 04/22/25 23:10 White Blood Count 5.2 10^3/uL (4.4-10.8) Red Blood Count 4.63 10^6/uL (4.0-5.20) Hemoglobin 13.6 g/dL (12.2-16.2) Hematocrit 39.0 % (36.0-46.0) Mean Corpuscular Volume 84.3 fL (80.0-100.0) Mean Corpuscular Hemoglobin 29.3 pg (28.0-32.0) Mean Corpuscular Hemoglobin Concent 34.7 g/dL (32.0-36.0) Red Cell Distribution Width 11.8 % (11.8-14.3) Platelet Count 229 10^3/uL (140-450) Mean Platelet Volume 7.9 fL (6.9-10.8) Neutrophils (%) (Auto) 49.5 % (37.0-80.0) Lymphocytes (%) (Auto) 35.7 % (10.0-50.0) Monocytes (%) (Auto) 10.6 % (0.0-12.0) Eosinophils (%) (Auto) 3.7 % (0.0-7.0) Basophils (%) (Auto) 0.5 % (0.0-2.0) Neutrophils # (Auto) 2.6 10 ^3/uL (1.6-8.6) Lymphocytes # (Auto) 1.9 10 ^3/uL (0.4-5.4) Monocytes # (Auto) 0.6 10 ^3/uL (0-1.3) Eosinophils # (Auto) 0.2 10 ^3/uL (0-0.8) Basophils # (Auto) 0 10 ^3/uL (0-0.2) Nucleated Red Blood Cells 0.2 % Sodium Level 141 mmol/L (136-145) Potassium Level 3.9 mmol/L (3.5-5.1) Chloride Level 106 mmol/L (98-107) Carbon Dioxide Level 23 mmol/L (20-31) Anion Gap 12 (5-15) Blood Urea Nitrogen 9 mg/dL (9-23) Creatinine 0.42 mg/dL (0.550-1.02) Glomerular Filtration Rate Calc 116 mL/min (>90) BUN/Creatinine Ratio 21.4 (10.0-20.0) Serum Glucose 100 mg/dL (74-106) Calcium Level 9.4 mg/dL (8.7-10.4) Total Bilirubin 0.8 mg/dL (0.2-1.0) Aspartate Amino Transferase (AST) 47 U/L (13-40) Alanine Aminotransferase (ALT) 80 U/L (7-40) Alkaline Phosphatase 71 U/L (46-116) Total Protein 6.9 g/dL (5.7-8.2) Albumin 3.9 g/dL (3.2-4.8) Thyroid Stimulating Hormone (TSH) < 0.01 uIU/mL (0.55-4.78) Magnesium Level 2.1 mg/dL (1.6-2.6) Troponin I High Sensitivity 3 ng/L (</=34) D-Dimer, Quantitative 0.50 mg/L FEU (0.0-0.49) Lactic Acid Level 0.5 mmol/L (0.4-2.0) Other Laboratory Tests 04/23/25 03:22 Brief Hx & Hospital Course: The patient is a 54-year-old female admitted for evaluation and management of thyrotoxicosis. She was previously diagnosed with hyperthyroidism by her primary care provider but was not initiated on treatment. During hospitalization, she was started on methimazole 10 mg twice daily with noted improvement in her hand tremors. The patient has been on propranolol 10 mg twice daily at home, which was continued for symptomatic control. Mild transaminitis was observed, likely secondary to fatty liver disease, and will require ongoing monitoring while on methimazole due to potential hepatotoxicity. The patient was counseled on medication adherence, possible side effects, and the importance of follow-up care. She was advised to schedule follow-up with her primary care provider for continued monitoring and to initiate referral to endocrinology for further management of hyperthyroidism. The patient verbalized understanding of all discharge instructions and was advised to return to the emergency department if symptoms worsen. Condition at Discharge: Fair Final Diagnosis/Problems List Thyrotoxicosis Assessment: Patient admitted for thyrotoxicosis with hyperthyroidism previously diagnosed by PCP. Laboratory findings demonstrate suppressed TSH below 0.01 and elevated free T4 of 6.82 yesterday, with today's free T4 still pending. Patient reports improvement in tremors today. Thyroid ultrasound revealed thyroid nodules requiring follow-up. Endocrinology consultation has been requested and is pending. Plan: - Continue methimazole 10 mg BID (previously received loading dose of 15 mg once) - Await endocrinology consultation - Follow-up thyroid ultrasound findings for nodules - Monitor free T4 levels - Change from atenolol to propranolol for symptom management Transaminitis Assessment: Patient has elevated liver enzymes requiring monitoring. Plan: - Continue to monitor transaminases Hypertension Assessment: Patient has hypertension currently managed with antihypertensive therapy. Plan: - Discontinue atenolol and change to propranolol Hyperlipidemia Assessment: Patient has hyperlipidemia requiring ongoing monitoring. Plan: - Monitor lipid levels DVT prophylaxis Discharge Disposition: Home Discharge Instruct/Medications Diet: Cardiac 2g Na,low cholest Activity: No Restrictions, As Tolerated Follow Up/Referral: PCP within 1 week and endocrinology within 1 week Scheduled Methimazole (Methimazole), 10 MG PO BID Discharge Statement: "Patient was advised to return to the ER or call 911 if any headaches, dizziness, shortness of breath, chest pain, abdominal pain, bleeding, fevers, or worsening of medical condition. Patient was counseled about treatment plan, medications, possible side effects, patientverbalized understanding. All questions were answered to the best of my ability. This discharge took greater then 30 minutes in planning, reviewing documentation, counseling the patient, and discussing with other team members." ASSESSMENT ASSESSMENT Assessment Thyrotoxicosis Assessment: Patient admitted for thyrotoxicosis with hyperthyroidism previously diagnosed by PCP. Laboratory findings demonstrate suppressed TSH below 0.01 and elevated free T4 of 6.82 yesterday, with today's free T4 still pending. Patient reports improvement in tremors today. Thyroid ultrasound revealed thyroid nodules requiring follow-up. Endocrinology consultation has been requested and is pending. Plan: - Continue methimazole 10 mg BID (previously received loading dose of 15 mg once) - Await endocrinology consultation - Follow-up thyroid ultrasound findings for nodules - Monitor free T4 levels - Change from atenolol to propranolol for symptom management Transaminitis Assessment: Patient has elevated liver enzymes requiring monitoring. Plan: - Continue to monitor transaminases Hypertension Assessment: Patient has hypertension currently managed with antihypertensive therapy. Plan: - Discontinue atenolol and change to propranolol Hyperlipidemia Assessment: Patient has hyperlipidemia requiring ongoing monitoring. Plan: - Monitor lipid levels DVT prophylaxis MELANI MOORE [employer] Apr 24, 2025 16:26
== END 2025-04-24 12:40 | disposition home or self-care (01) | DRG 645 ==
LOC: ER 21:54 → OVERFLOW 04-23 02:04 → TELE-WESTW 04-23 19:32
PROVIDERS: ADMIT Nurse Practitioner Family; ATTEND Nurse Practitioner Family
DX: E05.20 Thyrotoxicosis with toxic multinodular goiter without thyrotoxic crisis or storm (principal); E78.5 Hyperlipidemia, unspecified; I10 Essential (primary) hypertension; K76.0 Fatty (change of) liver, not elsewhere classified; R74.01 Elevation of levels of liver transaminase levels; Z20.822 Contact with and (suspected) exposure to COVID-19; Z79.899 Other long term (current) drug therapy
CPT/HCPCS: 36415; 71045; 76536; 80053; 80307; 81001; 83605; 83735; 84439; 84443; 84445; 84480; 84484; 85025; 85379; 86376; 87426; 87804; 93005; 93970; G0378